=== PATIENT | male | born 1935 | race Hispanic/Latino ===

== ENCOUNTER → 2017-10-03 | Outpatient (CLI) | payer OTHER | END | disposition home or self-care (01) | LOC: SHCH 15:04 | PROVIDERS: ATTEND Internal Medicine Cardiovascular Disease | DX: I20.9 Angina pectoris, unspecified (principal) | CPT/HCPCS: 93306 ==

== ENCOUNTER → 2017-10-10 | Outpatient (CLI) | payer OTHER ==
[~2017-10-10] VITALS: Ht 180.3 cm; Wt 108.0 kg
[~2017-10-10] MED LIST: REGADENOSON 0.4 MG/5 ML PF SYG IVP SCH
== END | disposition home or self-care (01) ==
LOC: SHCH 08:16
PROVIDERS: ATTEND Internal Medicine Cardiovascular Disease
DX: I20.9 Angina pectoris, unspecified (principal)
CPT/HCPCS: 78452; 93017; 96374; A9500 ×2; J2785

== ENCOUNTER → 2018-07-20 | Outpatient (CLI) | payer OTHER | END | disposition home or self-care (01) | LOC: SHCH 15:18 | PROVIDERS: ATTEND Internal Medicine Cardiovascular Disease | DX: I35.8 Other nonrheumatic aortic valve disorders (principal); I10 Essential (primary) hypertension | CPT/HCPCS: 93306 ==

== ENCOUNTER → 2018-07-25 | Outpatient (CLI) | payer OTHER | END | disposition home or self-care (01) | LOC: SHCH 08:23 | PROVIDERS: ATTEND Internal Medicine Cardiovascular Disease | DX: R07.9 Chest pain, unspecified (principal) | CPT/HCPCS: 78452; 93017; 96374; A9500 ×2; J2785 ==

== ENCOUNTER 2020-03-04 05:30 | Observation (INO) | payer OTHER ==
[2020-02-29 13:25] LABS: BASOPHILS % (AUTO) 0.6 % (0.0-5.0); HEMATOCRIT 34.2 % (42-54); LYMPHOCYTES % (AUTO) 17.6 % (21.0-51.0); MEAN CORPUSCULAR HEMOGLOBIN 28.3 pg (27.0-33.0); MEAN CORPUSCULAR HGB CONC 31.9 g/dL (32.0-36.0); MEAN CORPUSCULAR VOLUME 88.8 fL (79-99); MONOCYTES % (AUTO) 7.7 % (3.0-13.0); NEUTROPHILS % (AUTO) 71.8 % (40.0-77.0); PLATELET COUNT (AUTO) 130 K/uL (130-400); RED BLOOD CELL COUNT(AUTO) 3.85 MIL/uL (4.50-6.20); RED CELL DISTRIBUTION WIDTH 14.5 % (11.0-15.5); WHITE BLOOD COUNT (AUTO) 8.7 K/uL (4.8-10.8)
[2020-02-29 13:30] LABS: APPEARANCE,URINE Cloudy (CLEAR); BILIRUBIN,URINE Negative (NEGATIVE); COLOR,URINE Yellow (YELLOW); GLUCOSE, URINE (UA) 500 mg/dL (NEGATIVE); KETONES,URINE Negative (NEGATIVE); LEUKOCYTE ESTERASE ,URINE Moderate (NEGATIVE); NITRATE,URINE Negative (NEGATIVE); OCCULT BLOOD,URINE Large (NEGATIVE); PROTEIN,URINE Negative (NEGATIVE)
[2020-02-29 13:34] LABS: CREATININE 1.5 mg/dL (0.5-1.5); POTASSIUM 4.4 mmol/L (3.5-5.1)
[2020-02-29 13:38] LABS: INR 0.98 (0.85-1.15); PARTIAL THROMBOPLASTIN TIME 27.7 SEC (26.3-35.5); PROTHROMBIN TIME 10.6 SEC (9.6-11.6)
[2020-02-29 14:05] LABS: BACTERIA,URINE Few /HPF (None Seen); SQUAMOUS EPITHELIAL CELL,UR 0-2 /HPF (0-2)
[2020-03-03 13:59] VITALS: BP 160/59
--- NOTE | 2020-03-03 15:10 | NUR ---
Abnormal labs Spoke to ABHILASH Piña/Dr. Montalvo regarding abnormal labs. States to have CBC, BMP and UA reported in AM. Orders noted Addendum: 03/03/20 at 1522 by JUAN MANE RN RN CBC, BMP and UA to be repeated in AM
[2020-03-04] VITALS (13 sets, daily range): BP systolic 108–171; BP diastolic 53–73
[~2020-03-04] VITALS: Ht 185.4 cm; Wt 107.0 kg
[~2020-03-04 05:30] MED LIST changes: +AMLO10TA7 PO; +ASPI-1005 PO; +ATOR10 PO; +CLOP75TA32 PO; +DOXA4TAB3 PO; +GLIP5TAB11 PO; +ISOS30TA6 PO; +LOSA100T58 PO; +METF-446 PO; +METO-408 PO; +NITR0.4T50 SL; -REGADENOSON 0.4 MG/5 ML PF SYG IVP SCH; +TAMS-1 PO
[2020-03-04 06:06] LABS: HEMATOCRIT 35.3 % (42-54); LYMPHOCYTES % (AUTO) 25.4 % (21.0-51.0); MEAN CORPUSCULAR HEMOGLOBIN 28.5 pg (27.0-33.0); MEAN CORPUSCULAR HGB CONC 32.6 g/dL (32.0-36.0); MEAN CORPUSCULAR VOLUME 87.6 fL (79-99); MONOCYTES % (AUTO) 9.1 % (3.0-13.0); NEUTROPHILS % (AUTO) 61.1 % (40.0-77.0); PLATELET COUNT (AUTO) 128 K/uL (130-400); RED BLOOD CELL COUNT(AUTO) 4.03 MIL/uL (4.50-6.20); RED CELL DISTRIBUTION WIDTH 14.5 % (11.0-15.5); WHITE BLOOD COUNT (AUTO) 8.4 K/uL (4.8-10.8)
[2020-03-04] MEDS ORDERED: SODIUM CHLORIDE 0.9% 1000ML 1,000 ML IV ONE (06:15)
[2020-03-04 06:22] LABS: CREATININE 1.3 mg/dL (0.5-1.5); POTASSIUM 4.3 mmol/L (3.5-5.1)
[2020-03-04 06:23] LABS: APPEARANCE,URINE CLEAR (CLEAR); BILIRUBIN,URINE NEGATIVE (NEGATIVE); COLOR,URINE YELLOW (YELLOW); GLUCOSE, URINE (UA) NEGATIVE (NEGATIVE); KETONES,URINE NEGATIVE (NEGATIVE); LEUKOCYTE ESTERASE ,URINE SMALL (NEGATIVE); NITRATE,URINE NEGATIVE (NEGATIVE); OCCULT BLOOD,URINE SMALL (NEGATIVE); PROTEIN,URINE NEGATIVE (NEGATIVE); UROBILINOGEN,URINE 0.2 mg/dL (0.2-1.0)
[2020-03-04] MEDS ORDERED: SODIUM CHLORIDE 0.9% 500ML 500 ML IV SCH (07:00)
[2020-03-04] MEDS ORDERED: HEPARIN SODIUM 1000UNIT/ML 10ML VIAL ONE (07:11)
[2020-03-04] MEDS ORDERED: IOHEXOL-350 50ML VIAL IV ONE (07:11)
[2020-03-04] MEDS ORDERED: IOHEXOL 350 MG/ML 100ML INFUS..BTL IV ONE (07:11)
[2020-03-04] MEDS ORDERED: LIDOCAINE HCL 2% 20ML ONE (07:11)
--- NOTE | 2020-03-04 07:20 | NUR ---
PATIENT TRANSFERRED TO PIPE LINE INSPECTOR VIA BED BY CADE ALANIZ RN
[2020-03-04 07:40] LABS: BACTERIA,URINE Rare /HPF (None Seen); RBC,URINE 0-1 /HPF (0-1); SQUAMOUS EPITHELIAL CELL,UR Rare /HPF (0-2)
[2020-03-04] MEDS ORDERED: IOHEXOL-350 75 ML VIAL IV ONE (08:19)
[2020-03-04] MEDS ORDERED: AMLODIPINE BESYLATE 5 MG TAB PO SCH (09:00)
[2020-03-04] MEDS ORDERED: GLUCAGON 1MG KIT 1 MG ML IM PRN (09:15)
[2020-03-04] MEDS ORDERED: DEXTROSE 50%-WATER 50 ML DISP.SYRIN IV PRN (09:15)
[2020-03-04] MEDS ORDERED: NITROGLYCERIN 0.4 MG SL TAB SL SCH (09:15)
--- NOTE | 2020-03-04 09:45 | NUR ---
TSF PT CAME FROM DAY PT RM 2,AFTER MANAGER NEONATAL. PT TSF BY BED WITH NURSE MICHEL, PT IS,A/A X 3, VS STABLE PEDAL PULSES PRESENT, LINE IS INTACT, SITE IS DRY, NO HEMATOMA, NO BLEEDING, WILL CONTINUE TO MONITOR
[2020-03-04] MEDS: SODIUM CHLORIDE 0.9% 1000ML 1,000 ML IV SCH ×4 (10:28→18:04)
--- NOTE | 2020-03-04 10:30 | NUR ---
PTT 66 WILL DRAW PTT @ 7131
[2020-03-04] MEDS: INSULIN HUMULIN R 100 UNIT/ML 3ML SQ SCH ×3 (11:30→21:00)
[2020-03-04] MEDS: RANOLAZINE 500 MG TAB.SR.12H PO SCH ×2 (11:34→21:41)
[2020-03-04] MEDS: DOXAZOSIN MESYLATE 2 MG TABLET PO SCH (11:35)
[2020-03-04] MEDS: ISOSORBIDE MONO 30MG TAB SR PO SCH ×2 (11:35→21:42)
[2020-03-04] MEDS: LOSARTAN 100 MG TABLET PO SCH (11:35)
[2020-03-04] MEDS ORDERED: LOPERAMIDE 1 MG/7.5 ML UDCUP PO PRN (13:15)
[2020-03-04] MEDS ORDERED: HYDROMORPHONE HCL 0.5 MG/0.5 ML ML IVP PRN (13:15)
[2020-03-04] MEDS ORDERED: ZOLPIDEM TARTRATE 5 MG TAB PO PRN (13:15)
[2020-03-04] MEDS ORDERED: ONDANSETRON HCL 4 MG/2 ML VIAL IVP PRN (13:15)
--- NOTE | 2020-03-04 13:15 | NUR ---
PTT 35.9
--- NOTE | 2020-03-04 13:24 | NUR ---
SHEATH PULLED VS BEFORE SHEATH PULL 146/53 [id number]
[2020-03-04] MEDS ORDERED: HYDRALAZINE HCL 20 MG/ML VIAL ONE (14:06)
--- NOTE | 2020-03-04 14:25 | NUR ---
HEMOSTASIS ACHIEVED PT SPEEDY SHEATH PULL WELL, SITE IS SOFT, NO HEMATOMA, NO BLEEDING, NO PAIN AND DRESSING IS DRY AND INTACT, PULSES ARE PRESENT
[2020-03-04] MEDS ORDERED: TAMSULOSIN HCL 0.4 MG CAP.ER.24H PO SCH (21:00)
[2020-03-04] MEDS ORDERED: ISOSORBIDE MONO 30MG TAB SR PO SCH (21:00)
[2020-03-04] MEDS ORDERED: ATORVASTATIN CALCIUM 10 MG TABLET PO SCH (21:00)
[2020-03-04] MEDS ORDERED: RANOLAZINE 500 MG TAB.SR.12H PO SCH (21:00)
[2020-03-04] MEDS ORDERED: FAMOTIDINE 20MG TAB 20 MG TAB PO SCH (21:00)
[2020-03-04] MEDS: GLIPIZIDE 5 MG TABLET PO SCH (21:42)
[2020-03-05 03:58] VITALS: BP 136/60
[2020-03-05 05:36] LABS: HEMATOCRIT 31.3 % (42-54); MEAN CORPUSCULAR HEMOGLOBIN 28.2 pg (27.0-33.0); MEAN CORPUSCULAR HGB CONC 32.6 g/dL (32.0-36.0); MEAN CORPUSCULAR VOLUME 86.5 fL (79-99); RED BLOOD CELL COUNT(AUTO) 3.62 MIL/uL (4.50-6.20); RED CELL DISTRIBUTION WIDTH 14.4 % (11.0-15.5)
[2020-03-05] MEDS: INSULIN HUMULIN R 100 UNIT/ML 3ML SQ SCH ×2 (05:46→11:12)
[2020-03-05 05:51] LABS: ALBUMIN 2.9 g/dL (3.5-5.0); BILIRUBIN,TOTAL 0.5 mg/dL (0.2-1.0); CREATININE 1.2 mg/dL (0.5-1.5); POTASSIUM 4.4 mmol/L (3.5-5.1); TOTAL PROTEIN, SERUM 6.2 g/dL (6.0-8.3)
[2020-03-05 07:45] VITALS: BP 128/54
[2020-03-05] MEDS ORDERED: CLOPIDOGREL BISULFATE 75 MG TAB PO SCH (09:00)
[2020-03-05] MEDS ORDERED: METOPROLOL SUCCINATE 50 MG TAB.SR.24H PO SCH (09:00)
[2020-03-05] MEDS ORDERED: ASPIRIN 81MG TAB.CHEW PO SCH (09:00)
[2020-03-05] MEDS ORDERED: AMLODIPINE BESYLATE 5 MG TAB PO SCH (09:00)
[2020-03-05] MEDS ORDERED: LOSARTAN 100 MG TABLET PO SCH (09:00)
[2020-03-05] MEDS: RANOLAZINE 500 MG TAB.SR.12H PO SCH (09:25)
[2020-03-05] MEDS: LOSARTAN 100 MG TABLET PO SCH (09:25)
[2020-03-05] MEDS: ISOSORBIDE MONO 30MG TAB SR PO SCH (09:26)
[2020-03-05] MEDS: DOXAZOSIN MESYLATE 2 MG TABLET PO SCH (09:26)
[2020-03-05] MEDS: GLIPIZIDE 5 MG TABLET PO SCH (09:27)
[2020-03-05 11:00] VITALS: BP 132/64
--- NOTE | 2020-03-05 11:20 | NUR ---
1038 patient signed IM Letter, I faxed IM Letter to [phone] and placed in chart under consent tab.
[2020-03-05] MEDS ORDERED: RANO500T3 PO (11:47)
== END 2020-03-05 12:55 | disposition home or self-care (01) ==
LOC: DAH 05:30 → 4BH 05:31 → DAH 05:31
PROVIDERS: ADMIT Internal Medicine; ATTEND Internal Medicine
DX: I25.119 Atherosclerotic heart disease of native coronary artery with unspecified angina pectoris (principal); I10 Essential (primary) hypertension; E11.9 Type 2 diabetes mellitus without complications; Z87.891 Personal history of nicotine dependence; Z79.01 Long term (current) use of anticoagulants; Z79.02 Long term (current) use of antithrombotics/antiplatelets; Z79.899 Other long term (current) drug therapy; Z95.1 Presence of aortocoronary bypass graft; Z95.5 Presence of coronary angioplasty implant and graft
CPT/HCPCS: 36415 ×3; 71045; 74018; 80048 ×2; 80053; 81001 ×2; 82948 ×6; 85025 ×2; 85027; 85610; 85730 ×3; 87077; 87088; 87186; 93005; 93459; 96360; 96361 ×2; 96372; A4215; A4216; A4221; A4222; A4223 ×3; A4606; A4663; C1769 ×2; C1887 ×4; C1894; C9600; G0378 ×20; J0360; J1644 ×2; J3490; J7030; Q9965 ×2; Q9967 ×3

== ENCOUNTER 2020-04-25 05:46 | Observation (INO) | payer OTHER ==
[2020-04-23 13:09] LABS: BASOPHILS % (AUTO) 0.6 % (0.0-5.0); EOSINOPHILS % (AUTO) 3.5 % (0.0-8.0); LYMPHOCYTES % (AUTO) 23.4 % (21.0-51.0); MEAN CORPUSCULAR HEMOGLOBIN 28.5 pg (27.0-33.0); MEAN CORPUSCULAR HGB CONC 32.1 g/dL (32.0-36.0); MEAN CORPUSCULAR VOLUME 88.8 fL (79-99); MONOCYTES % (AUTO) 8.8 % (3.0-13.0); NEUTROPHILS % (AUTO) 63.3 % (40.0-77.0); PLATELET COUNT (AUTO) 152 K/uL (130-400); RED BLOOD CELL COUNT(AUTO) 4.28 MIL/uL (4.50-6.20); RED CELL DISTRIBUTION WIDTH 13.7 % (11.0-15.5); WHITE BLOOD COUNT (AUTO) 7.8 K/uL (4.8-10.8)
[2020-04-23 13:16] LABS: APPEARANCE,URINE Clear (CLEAR); BILIRUBIN,URINE Negative (NEGATIVE); COLOR,URINE Yellow (YELLOW); GLUCOSE, URINE (UA) Negative (NEGATIVE); KETONES,URINE Negative (NEGATIVE); LEUKOCYTE ESTERASE ,URINE Moderate (NEGATIVE); NITRATE,URINE Negative (NEGATIVE); OCCULT BLOOD,URINE Negative (NEGATIVE); PROTEIN,URINE Negative (NEGATIVE); UROBILINOGEN,URINE 0.2 mg/dL (0.2-1.0)
[2020-04-23 13:29] LABS: INR 0.97 (0.85-1.15); PARTIAL THROMBOPLASTIN TIME 27.7 SEC (26.3-35.5); PROTHROMBIN TIME 10.5 SEC (9.6-11.6)
[2020-04-23 13:31] LABS: CREATININE 1.3 mg/dL (0.5-1.5); POTASSIUM 4.5 mmol/L (3.5-5.1)
[2020-04-23 14:10] LABS: RBC,URINE None Seen /HPF (0-1); WBC,URINE 51-100 /HPF (0-1)
[2020-04-23 14:11] LABS: BACTERIA,URINE Few /HPF (None Seen)
--- NOTE | 2020-04-24 10:52 | NUR ---
Reported to Roly HUNG urine with moderate leukest , wbc 51-100 , few bact, squam epi 2-5, with urine culture of less than 10,000 CFU, and bun 27, sanitary napkin machine tender of 1.3, no new orders okay to proceed.
--- NOTE | 2020-04-24 10:55 | NUR ---
Reported to Roly bunn chest xray results, no new orders.
[~2020-04-25] VITALS: Ht 182.9 cm; Wt 104.5 kg
[2020-04-25] VITALS (18 sets, daily range): BP systolic 120–181; BP diastolic 55–87
[~2020-04-25 05:46] MED LIST changes: -AMLO10TA7 PO; -DOXA4TAB3 PO; -METF-446 PO; +RANO500T3 PO; +SODIUM CHLORIDE 0.9% 500ML 500 ML IV SCH
--- NOTE | 2020-04-25 06:50 | NUR ---
preop pt resting on bed in no distress. spouse at side. pt oriented to room and call light. 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 pt also has bruising to arms. pt connected to court monitor. will continue to monitor pt
[2020-04-25] MEDS ORDERED: SODIUM CHLORIDE 0.9% 1000ML 1,000 ML IV ONE (07:30)
[2020-04-25] MEDS: TAMSULOSIN HCL 0.4 MG CAP.ER.24H PO SCH (09:00)
[2020-04-25] MEDS ORDERED: SODIUM BICARB 50MEQ 50ML VIAL 50 ML ONE (09:38)
[2020-04-25] MEDS ORDERED: NITROGLYCERIN 2 MG/VIAL VIAL IV ONE (09:38)
[2020-04-25] MEDS ORDERED: HEPARIN SODIUM 1000UNIT/ML 10ML VIAL ONE (09:38)
[2020-04-25] MEDS ORDERED: LIDOCAINE HCL 2% 20ML ONE ×2 (09:39→10:34)
[2020-04-25] MEDS ORDERED: MIDAZOLAM HCL 1 MG/ML 2ML VIAL ONE ×2 (09:39→11:16)
[2020-04-25] MEDS ORDERED: MEPERIDINE-PF 25 MG/ML SYG ONE ×2 (09:39→11:15)
[2020-04-25] MEDS ORDERED: IOHEXOL-350 75 ML VIAL IV ONE (09:39)
--- NOTE | 2020-04-25 10:11 | NUR ---
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 pt in no distress
[2020-04-25] MEDS: SODIUM CHLORIDE 0.9% 1000ML 1,000 ML IV SCH ×2 (12:00→20:29)
[2020-04-25] MEDS ORDERED: DEXTROSE 50%-WATER 50 ML DISP.SYRIN IV PRN (12:00)
[2020-04-25] MEDS ORDERED: ACETAMINOPHEN-CODEINE 300/30MG TAB PO PRN ×2 (12:00)
[2020-04-25] MEDS ORDERED: ONDANSETRON HCL 4 MG/2 ML VIAL IVP PRN (12:00)
[2020-04-25] MEDS ORDERED: NITROGLYCERIN 0.4 MG SL TAB SL SCH (12:00)
--- NOTE | 2020-04-25 12:06 | NUR ---
md dr colbert spoke to . informed her pt would be admitted
[2020-04-25] MEDS: METOPROLOL SUCCINATE 50 MG TAB.SR.24H PO SCH (12:12)
--- NOTE | 2020-04-25 12:25 | NUR ---
post cath received pt and report from pascale weinstein rn. pt in supine position in no distress. spouse at side. 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 will continue to monitor pt
--- NOTE | 2020-04-25 12:40 | NUR ---
hospitalist dr guidry notified of admission
--- NOTE | 2020-04-25 13:22 | NUR ---
follow up kristen henley application integration architect here to see pt.
--- NOTE | 2020-04-25 14:53 | NUR ---
report report given to stepan horton rn for continuation of care
[2020-04-25] MEDS: INSULIN HUMULIN R 100 UNIT/ML 3ML SQ SCH ×2 (16:18→20:30)
--- NOTE | 2020-04-25 16:21 | NUR ---
HAND OFF REPORT GIVEN TO LYNN SUMMERS. PT TRANSFERRED TO ROOM 419
[2020-04-25] MEDS: ISOSORBIDE MONO 30MG TAB SR PO SCH (20:29)
[2020-04-25] MEDS: RANOLAZINE 500 MG TAB.SR.12H PO SCH (20:29)
[2020-04-25] MEDS: GLIPIZIDE 5 MG TABLET PO SCH (20:30)
[2020-04-25] MEDS ORDERED: ATORVASTATIN CALCIUM 10 MG TABLET PO SCH (21:00)
[2020-04-26 04:00] VITALS: BP 180/71
[2020-04-26] MEDS: METOPROLOL SUCCINATE 50 MG TAB.SR.24H PO SCH (04:29)
[2020-04-26] MEDS: INSULIN HUMULIN R 100 UNIT/ML 3ML SQ SCH ×2 (06:04→11:28)
[2020-04-26 06:23] LABS: HEMATOCRIT 34.4 % (42-54); MEAN CORPUSCULAR HEMOGLOBIN 28.5 pg (27.0-33.0); MEAN CORPUSCULAR HGB CONC 32.6 g/dL (32.0-36.0); MEAN CORPUSCULAR VOLUME 87.5 fL (79-99); RED BLOOD CELL COUNT(AUTO) 3.93 MIL/uL (4.50-6.20); RED CELL DISTRIBUTION WIDTH 13.3 % (11.0-15.5); WHITE BLOOD COUNT (AUTO) 8.2 K/uL (4.8-10.8)
[2020-04-26 06:34] LABS: CREATININE 1.2 mg/dL (0.5-1.5); POTASSIUM 4.3 mmol/L (3.5-5.1)
[2020-04-26 08:06] VITALS: BP 177/62
[2020-04-26] MEDS ORDERED: ASPIRIN 81MG TAB.CHEW PO SCH (09:00)
[2020-04-26] MEDS ORDERED: LOSARTAN 100 MG TABLET PO SCH (09:00)
[2020-04-26] MEDS: TAMSULOSIN HCL 0.4 MG CAP.ER.24H PO SCH (09:00)
[2020-04-26] MEDS ORDERED: CLOPIDOGREL BISULFATE 75 MG TAB PO SCH (09:00)
[2020-04-26] MEDS: ISOSORBIDE MONO 30MG TAB SR PO SCH (09:10)
[2020-04-26] MEDS: GLIPIZIDE 5 MG TABLET PO SCH (09:10)
[2020-04-26] MEDS: RANOLAZINE 500 MG TAB.SR.12H PO SCH (09:11)
[2020-04-26 12:09] VITALS: BP 141/68
--- NOTE | 2020-04-26 17:00 | NUR ---
DC INSTRUCTIONS GIVEN TO PT, ACKNOWLEDGED ALL INFORMATION, ALL QUESTIONS ANSWERED. RIGHT GROIN SITE INTACT, NO DRAINAGE OR HEMATOMA, PULSES PALPABLE. PT MADE AWARE TO DIAL 911 OR RETURN TO ER IN CASE OF EMERGENCY
== END 2020-04-26 17:20 | disposition home or self-care (01) ==
LOC: DAH 05:46 → DAHIP 05:47 → 4CH 16:43
PROVIDERS: ADMIT Internal Medicine; ATTEND Internal Medicine
DX: I25.119 Atherosclerotic heart disease of native coronary artery with unspecified angina pectoris (principal); I10 Essential (primary) hypertension; E11.9 Type 2 diabetes mellitus without complications; N20.0 Calculus of kidney; E78.5 Hyperlipidemia, unspecified; E78.00 Pure hypercholesterolemia, unspecified; G30.9 Alzheimer's disease, unspecified; F02.80 Dementia in other diseases classified elsewhere, unspecified severity, without behavioral disturbance, psychotic disturbance, mood disturbance, and anxiety; N40.0 Benign prostatic hyperplasia without lower urinary tract symptoms; Z87.442 Personal history of urinary calculi; Z95.1 Presence of aortocoronary bypass graft; Z87.891 Personal history of nicotine dependence
CPT/HCPCS: 36415 ×2; 71045; 80048 ×2; 81001; 82948 ×6; 85025; 85027; 85610; 85730; 87088; 93005; 93455; 96360; 96361 ×2; A4215; A4216; A4221; A4222; A4223 ×3; A4606; A4663; C1725; C1760; C1769 ×2; C1874 ×5; C1887 ×5; C1894; C9600; C9604 ×2; G0378 ×20; J1644 ×3; J2175 ×2; J2250 ×2; J3490 ×4; J7030 ×2; Q9967; 99156; 99157

== ENCOUNTER → 2020-10-07 | Outpatient (CLI) | payer OTHER ==
[~2020-10-07] VITALS: Ht 180.3 cm; Wt 101.6 kg
[~2020-10-07] MED LIST changes: -ISOS30TA6 PO; +ISOS30TA92 PO; +REGADENOSON 0.4 MG/5 ML PF SYG IVP SCH; -SODIUM CHLORIDE 0.9% 500ML 500 ML IV SCH
== END | disposition home or self-care (01) ==
LOC: SHCH 08:30
PROVIDERS: ATTEND Internal Medicine Cardiovascular Disease
DX: I25.10 Atherosclerotic heart disease of native coronary artery without angina pectoris (principal)
CPT/HCPCS: 78452; 93017; 96374; A9500 ×2

== ENCOUNTER 2020-12-10 05:41 | Day surgery (SDC) | payer OTHER ==
[2020-12-08 10:48] LABS: BASOPHILS % (AUTO) 0.8 % (0.0-5.0); EOSINOPHILS % (AUTO) 3.7 % (0.0-8.0); HEMATOCRIT 41.5 % (42-54); MEAN CORPUSCULAR HEMOGLOBIN 25.4 pg (27.0-33.0); MEAN CORPUSCULAR HGB CONC 30.8 g/dL (32.0-36.0); MEAN CORPUSCULAR VOLUME 82.5 fL (79-99); MONOCYTES % (AUTO) 8.1 % (3.0-13.0); NEUTROPHILS % (AUTO) 67.9 % (40.0-77.0); PLATELET COUNT (AUTO) 154 K/uL (130-400); RED BLOOD CELL COUNT(AUTO) 5.03 MIL/uL (4.50-6.20); RED CELL DISTRIBUTION WIDTH 14.6 % (11.0-15.5); WHITE BLOOD COUNT (AUTO) 8.6 K/uL (4.8-10.8)
[2020-12-08 10:51] LABS: APPEARANCE,URINE Clear (CLEAR); BILIRUBIN,URINE Negative (NEGATIVE); COLOR,URINE Dark Yellow (YELLOW); GLUCOSE, URINE (UA) Negative (NEGATIVE); KETONES,URINE Trace mg/dL (NEGATIVE); LEUKOCYTE ESTERASE ,URINE Moderate (NEGATIVE); NITRATE,URINE Negative (NEGATIVE); OCCULT BLOOD,URINE Trace (NEGATIVE); PROTEIN,URINE Trace mg/dL (NEGATIVE)
[2020-12-08 11:02] LABS: CREATININE 1.3 mg/dL (0.5-1.5); POTASSIUM 4.3 mmol/L (3.5-5.1)
[2020-12-08 11:25] LABS: BACTERIA,URINE Few /HPF (None Seen); RBC,URINE 0-1 /HPF (0-1)
[2020-12-08 11:26] LABS: SQUAMOUS EPITHELIAL CELL,UR Few /HPF (0-2)
[2020-12-08 11:38] LABS: INR 1.05 (0.85-1.15); PROTHROMBIN TIME 11.4 SEC (9.6-11.6)
[2020-12-08 11:39] LABS: PARTIAL THROMBOPLASTIN TIME 29.7 SEC (26.3-35.5)
[2020-12-08 13:58] VITALS: BP 140/63
[~2020-12-10] VITALS: Ht 182.9 cm; Wt 101.6 kg
[2020-12-10] VITALS (12 sets, daily range): BP systolic 121–190; BP diastolic 49–78
[~2020-12-10 05:41] MED LIST changes: -REGADENOSON 0.4 MG/5 ML PF SYG IVP SCH
[2020-12-10] MEDS ORDERED: DOXA4TAB3 PO (07:10)
[2020-12-10] MEDS ORDERED: ISOS20TA85 PO (07:10)
[2020-12-10] MEDS ORDERED: AMLO-258 PO (07:10)
[2020-12-10] MEDS ORDERED: NACL 0.9% 1000ML 1,000 ML IV SCH ×2 (08:00→09:45)
[2020-12-10] MEDS ORDERED: IOHEXOL-350 50ML VIAL IV ONE (08:23)
[2020-12-10] MEDS ORDERED: HEPARIN 10,000 UNIT/10ML (1,000 UNIT/ML) VIAL ONE (08:23)
[2020-12-10] MEDS ORDERED: LIDOCAINE HCL 400MG/20ML VIAL ONE (08:23)
[2020-12-10] MEDS ORDERED: HEPARIN 1,000 UNIT VIAL ONE (08:23)
[2020-12-10] MEDS ORDERED: IOHEXOL 350 MG/ML 100ML INFUS..BTL IV ONE (08:23)
[2020-12-10] MEDS ORDERED: LABETALOL 20MG VIAL IV ONE (09:34)
[2020-12-10] MEDS ORDERED: RANOLAZINE 500 MG TAB.SR.12H PO SCH (10:30)
== END 2020-12-10 16:20 | disposition home or self-care (01) ==
LOC: DAH 05:41
PROVIDERS: ATTEND Internal Medicine Cardiovascular Disease
DX: I25.118 Atherosclerotic heart disease of native coronary artery with other forms of angina pectoris (principal); Q25.0 Patent ductus arteriosus; I10 Essential (primary) hypertension; E11.9 Type 2 diabetes mellitus without complications; Z79.84 Long term (current) use of oral hypoglycemic drugs; Z79.82 Long term (current) use of aspirin; Z79.01 Long term (current) use of anticoagulants; Z95.1 Presence of aortocoronary bypass graft; Z95.5 Presence of coronary angioplasty implant and graft; Z87.891 Personal history of nicotine dependence; Z82.49 Family history of ischemic heart disease and other diseases of the circulatory system
CPT/HCPCS: 36415; 71045; 80048; 81001; 82948 ×2; 85025; 85610; 85730; 87088; 93005; 93459; A4215; A4216; A4221; A4222; A4223 ×3; A4606; A4663; C1769; C1894; J1644; J3490 ×2; J7030; Q9965; Q9967 ×2; 96360; 96361